=== PATIENT | female | born 1995 | race Two or more races ===

== ENCOUNTER 2023-06-20 09:59 | Emergency (ER) | payer OTHER ==
[~2023-06-20] VITALS: Ht 144.8 cm; Wt 69.9 kg
[2023-06-20] MEDS ORDERED: PRENA1 TRUE CO1 EACH (10:08)
[2023-06-20] MEDS ORDERED: ONDANSETRON HCL 2 MG/ML VIAL IV ONE (10:30)
[2023-06-20] MEDS ORDERED: 0.9 % SODIUM CHLORIDE 1,000 ML IV STA (10:30)
[2023-06-20 11:11] LABS: PH,URINE 6.5 (5.0-8.0); URINE APPEARANCE Cloudy; URINE BILIRRUBIN Negative (NEGATIVE); URINE BLOOD Trace; URINE COLOR Yellow; URINE GLUCOSE Negative (NEGATIVE); URINE LEUKOCYTE Small; URINE NITRATE Negative; URINE PROTEIN Trace (NEGATIVE)
[2023-06-20 11:12] LABS: URINE EPITHELIAL CELLS 176.7 uL (0.0-38.8); URINE RBC 21.8 uL (0.0-20.8); URINE WBC 252.6 uL (0.0-23.2)
[2023-06-20 11:13] LABS: HEMATOCRIT 29.5 % (36.0-45.00); HEMOGLOBIN 9.4 g/dL (12.0-15.00); MEAN CELL VOLUME 61.4 fL (80.00-100.00); MEAN CORPUSCULAR HEMOGLOBIN 19.6 pg (27.00-32.0); MEAN CORPUSCULAR HGB CONC 31.9 g/dl (32.0-36.0); PLATELET COUNT 284 K/uL (150-450)
[2023-06-20 11:29] LABS: URINE BACTERIA > 9821.5 uL (0.0-1933)
[2023-06-20 11:52] LABS: CALCIUM 8.7 mg/dL (8.5-10.1); CREATININE SERUM 0.68 mg/dL (0.55-1.02); GFR 104.59; POTASSIUM 3.67 mEq/L (3.5-5.1)
[2023-06-20] MEDS ORDERED: CEFTRIAXONE SODIUM 1,000 MG VIAL IV STA (12:15)
[2023-06-21] MEDS ORDERED: ONDANSETRON ODT4 MG SL (22:54)
[2023-06-21] MEDS ORDERED: PEPCID AC20 MG PO (22:54)
[2023-06-21] MEDS ORDERED: MACROBID 100 M100 MG PO (22:54)
== END 2023-06-20 12:29 | disposition home or self-care (01) ==
LOC: ER 09:59
PROVIDERS: General Practice
DX: O23.31 Infections of other parts of urinary tract in pregnancy, first trimester (principal); Z3A.16 16 weeks gestation of pregnancy; R11.10 Vomiting, unspecified

== ENCOUNTER 2023-06-21 19:27 | Emergency (ER) | payer OTHER ==
[~2023-06-21] VITALS: Ht 144.8 cm; Wt 68.0 kg
[~2023-06-21 19:27] MED LIST: PRENA1 TRUE CO1 EACH
[2023-06-21] MEDS ORDERED: FAMOTIDINE/PF 20 MG/2 ML VIAL IV ONE (21:15)
[2023-06-21] MEDS ORDERED: CEFTRIAXONE SODIUM 1,000 MG VIAL IV ONE (21:30)
[2023-06-21] MEDS ORDERED: ONDANSETRON HCL 2 MG/ML VIAL IV ONE (21:30)
[2023-06-21] MEDS ORDERED: ACETAMINOPHEN 500 MG GEL..CAP PO ONE (21:30)
[2023-06-21] MEDS ORDERED: 0.9 % SODIUM CHLORIDE 1,000 ML IV SCH (21:45)
[2023-06-21 21:48] LABS: HEMATOCRIT 29.3 % (36.0-45.00); HEMOGLOBIN 9.4 g/dL (12.0-15.00); MEAN CORPUSCULAR HEMOGLOBIN 20.1 pg (27.00-32.0); MEAN CORPUSCULAR HGB CONC 31.9 g/dl (32.0-36.0); PLATELET COUNT 293 K/uL (150-450); RED BLOOD COUNT 4.66 M/uL (4.00-6.00); RED CELL DISTRIBUTION WIDTH 18.9 % (11.5-14.5)
[2023-06-21 21:49] LABS: MEAN CELL VOLUME 62.9 fL (80.00-100.00)
[2023-06-21 22:00] LABS: INR 0.94; PARTIAL THROMBOPLASTIN TIME 27.5 SECONDS (22.0-34.0); PROTHROMBIN TIME 9.9 SECONDS (9.0-11.5)
[2023-06-21 22:32] LABS: CALCIUM 9.2 mg/dL (8.5-10.1); CREATININE SERUM 0.7 mg/dL (0.55-1.02); GFR 101.15; POTASSIUM 3.91 mEq/L (3.5-5.1)
[2023-06-21] MEDS ORDERED: PEPCID AC20 MG PO (22:54)
[2023-06-21] MEDS ORDERED: ONDANSETRON ODT4 MG SL (22:54)
[2023-06-21] MEDS ORDERED: MACROBID 100 M100 MG PO (22:54)
[2023-06-21] MEDS ORDERED: KETOROLAC TROMETHAMINE 30 MG VIAL IM ONE (23:15)
[2023-06-22 00:01] LABS: PH,URINE 6.5 (5.0-8.0); URINE APPEARANCE Clear; URINE BILIRRUBIN Negative (NEGATIVE); URINE BLOOD Negative; URINE COLOR Yellow; URINE GLUCOSE Negative (NEGATIVE); URINE LEUKOCYTE Trace; URINE NITRATE Negative; URINE PROTEIN Negative (NEGATIVE); URINE UROBILINOGEN 0.2 E.U./dl
[2023-06-22 00:02] LABS: URINE BACTERIA 290.9 uL (0.0-1933); URINE EPITHELIAL CELLS 15.5 uL (0.0-38.8); URINE RBC 9.7 uL (0.0-20.8); URINE WBC 20.8 uL (0.0-23.2)
[2023-06-22] MEDS ORDERED: 0.9 % SODIUM CHLORIDE 175 ML IV SCH (10:00)
== END 2023-06-21 23:33 ==
LOC: ER 19:28
PROVIDERS: Nurse Practitioner Family
DX: O23.31 Infections of other parts of urinary tract in pregnancy, first trimester (principal); Z3A.13 13 weeks gestation of pregnancy; R30.0 Dysuria; N39.0 Urinary tract infection, site not specified
CPT/HCPCS: 36415; 76770; 96365; 96366; 96372; 99284; J0696; J1885; J2405; J3490; J7030

== ENCOUNTER 2023-07-06 01:01 | Emergency (ER) | payer OTHER ==
[~2023-07-06] VITALS: Ht 144.8 cm; Wt 68.0 kg
[~2023-07-06 01:01] MED LIST changes: +MACROBID 100 M100 MG PO; +ONDANSETRON ODT4 MG SL; +PEPCID AC20 MG PO
[2023-07-06] MEDS ORDERED: IRON236 MG (01:17)
[2023-07-06] MEDS ORDERED: RINGERS SOLUTION,LACTATED 1,000 ML IV STA (02:11)
[2023-07-06] MEDS ORDERED: HYOSCYAMINE SULFATE 0.125 MG TAB.SUBL SL STA (02:12)
[2023-07-06] MEDS ORDERED: MORPHINE SULFATE 4 MG/ML VIAL IV STA (02:13)
[2023-07-06 02:45] LABS: HEMATOCRIT 29.7 % (36.0-45.00); MEAN CORPUSCULAR HGB CONC 31.5 g/dl (32.0-36.0); PLATELET COUNT 288 K/uL (150-450); RED BLOOD COUNT 4.82 M/uL (4.00-6.00); RED CELL DISTRIBUTION WIDTH 18.7 % (11.5-14.5)
[2023-07-06 02:47] LABS: HEMOGLOBIN 9.4 g/dL (12.0-15.00); MEAN CELL VOLUME 61.6 fL (80.00-100.00); MEAN CORPUSCULAR HEMOGLOBIN 19.5 pg (27.00-32.0)
[2023-07-06 02:52] LABS: CALCIUM 8.6 mg/dL (8.5-10.1); CREATININE SERUM 0.59 mg/dL (0.55-1.02); GFR 123.21; POTASSIUM 3.96 mEq/L (3.5-5.1)
[2023-07-06 04:52] LABS: PH,URINE 6.5 (5.0-8.0); URINE APPEARANCE Clear; URINE BILIRRUBIN Negative (NEGATIVE); URINE BLOOD Trace; URINE COLOR Yellow; URINE GLUCOSE Negative (NEGATIVE); URINE LEUKOCYTE Negative; URINE NITRATE Negative; URINE PROTEIN Negative (NEGATIVE)
[2023-07-06 04:54] LABS: URINE BACTERIA 574.5 uL (0.0-1933); URINE EPITHELIAL CELLS 47.7 uL (0.0-38.8); URINE RBC 4.7 uL (0.0-20.8); URINE WBC 21.9 uL (0.0-23.2)
== END 2023-07-06 05:32 | disposition home or self-care (01) ==
LOC: ER 01:01
DX: O26.892 Other specified pregnancy related conditions, second trimester (principal); N20.1 Calculus of ureter; Z3A.15 15 weeks gestation of pregnancy

== ENCOUNTER 2023-09-14 18:12 | Emergency (ER) | payer OTHER ==
[~2023-09-14] VITALS: Ht 144.8 cm; Wt 77.1 kg
[~2023-09-14 18:12] MED LIST changes: +IRON236 MG; +ONDANSETRON ODT8 MG PO; +TUSSIN100 MG/51 PO; +ZITHROMAX500 MG PO
[2023-09-15] MEDS ORDERED: LACTOBACILLUS ACIDOPHILUS 1 CAP CAP PO STA (00:11)
[2023-09-15] MEDS ORDERED: FAMOTIDINE/PF 20 MG/2 ML VIAL IV PUSH STA (00:11)
[2023-09-15] MEDS ORDERED: PROMETHAZINE HCL 50 MG/ML AMPUL IM STA (00:11)
[2023-09-15] MEDS ORDERED: 0.9 % SODIUM CHLORIDE 1,000 ML IV ONE (00:15)
[2023-09-15] MEDS ORDERED: PROMETHAZINE HCL 50 MG/ML AMPUL IM ONE (00:16)
[2023-09-15] MEDS ORDERED: FAMOTIDINE/PF 20 MG/2 ML VIAL ONE (00:17)
[2023-09-15] MEDS ORDERED: LACTOBACILLUS ACIDOPHILUS 1 CAP CAP PO ONE (00:17)
[2023-09-15 01:10] LABS: HEMATOCRIT 28.9 % (36.0-45.00); MEAN CORPUSCULAR HGB CONC 31.2 g/dl (32.0-36.0); PLATELET COUNT 271 K/uL (150-450); RED BLOOD COUNT 4.67 M/uL (4.00-6.00); RED CELL DISTRIBUTION WIDTH 18.8 % (11.5-14.5)
[2023-09-15 01:11] LABS: MEAN CELL VOLUME 61.9 fL (80.00-100.00); MEAN CORPUSCULAR HEMOGLOBIN 19.2 pg (27.00-32.0)
[2023-09-15 01:33] LABS: PH,URINE 6.5 (5.0-8.0); URINE APPEARANCE Clear; URINE BILIRRUBIN Negative (NEGATIVE); URINE BLOOD Negative; URINE COLOR Yellow; URINE GLUCOSE Negative (NEGATIVE); URINE LEUKOCYTE Moderate; URINE NITRATE Negative; URINE PROTEIN Trace (NEGATIVE)
[2023-09-15 01:34] LABS: URINE BACTERIA 3439.6 uL (0.0-1933); URINE EPITHELIAL CELLS 51.4 uL (0.0-38.8); URINE RBC 15.5 uL (0.0-20.8); URINE WBC 175.4 uL (0.0-23.2)
[2023-09-15 01:50] LABS: CALCIUM 9.2 mg/dL (8.5-10.1); CREATININE SERUM 0.54 mg/dL (0.55-1.02); GFR 136.47; POTASSIUM 4.13 mEq/L (3.5-5.1)
[2023-09-15] MEDS ORDERED: PEPCID40 MG PO (04:02)
[2023-09-15] MEDS ORDERED: INTESTINEX680 M1 PO (04:02)
[2023-09-15] MEDS ORDERED: ONDANSETRON ODT4 MG PO (04:02)
== END 2023-09-15 04:19 ==
LOC: ER 18:13
PROVIDERS: General Practice
DX: O21.8 Other vomiting complicating pregnancy (principal); K52.89 Other specified noninfective gastroenteritis and colitis; Z3A.25 25 weeks gestation of pregnancy; Z20.822 Contact with and (suspected) exposure to COVID-19

== ENCOUNTER → 2023-10-01 14:46 | Outpatient (CLI) | payer OTHER ==
[~2023-10-01 14:46] MED LIST changes: +INTESTINEX680 M1 PO; +ONDANSETRON ODT4 MG PO; +PEPCID40 MG PO
== END | disposition home or self-care (01) ==
LOC: PRENATAL 14:46
PROVIDERS: ATTEND Obstetrics & Gynecology Maternal & Fetal Medicine
DX: O26.849 Uterine size-date discrepancy, unspecified trimester (principal); O99.019 Anemia complicating pregnancy, unspecified trimester; O36.5990 Maternal care for other known or suspected poor fetal growth, unspecified trimester, not applicable or unspecified; Z3A.28 28 weeks gestation of pregnancy

== ENCOUNTER 2023-10-13 06:05 | Inpatient (IN) | payer OTHER ==
[~2023-10-13] VITALS: Ht 121.9 cm; Wt 78.9 kg
[2023-10-13] MEDS ORDERED: ONDANSETRON HCL 4 MG in 0.9 % SODIUM CHLORIDE 50 ML IV STA (06:44)
[2023-10-13] MEDS ORDERED: FAMOTIDINE/PF 20 MG/2 ML VIAL IV PUSH STA (06:45)
[2023-10-13] MEDS ORDERED: SODIUM CHLORIDE 0.45 % 500 ML IV ONE (06:45)
[2023-10-13] MEDS ORDERED: ONDANSETRON HCL 2 MG/ML VIAL ONE (07:11)
[2023-10-13] MEDS ORDERED: CEFTRIAXONE SODIUM 1,000 MG VIAL IV STA (07:54)
[2023-10-13] MEDS ORDERED: CEFTRIAXONE SODIUM 1,000 MG VIAL ONE (07:57)
[2023-10-13 08:03] LABS: URINE APPEARANCE Clear; URINE BILIRRUBIN Negative (NEGATIVE); URINE BLOOD Negative; URINE COLOR Yellow; URINE GLUCOSE Negative (NEGATIVE); URINE LEUKOCYTE Large; URINE NITRATE Negative; URINE PROTEIN Negative (NEGATIVE); URINE UROBILINOGEN 0.2 E.U./dl
[2023-10-13 08:05] LABS: HEMATOCRIT 26.7 % (36.0-45.00); MEAN CORPUSCULAR HGB CONC 31.8 g/dl (32.0-36.0); PLATELET COUNT 175 K/uL (150-450); RED BLOOD COUNT 4.31 M/uL (4.00-6.00); RED CELL DISTRIBUTION WIDTH 18.4 % (11.5-14.5)
[2023-10-13 08:06] LABS: URINE BACTERIA 2476.9 uL (0.0-1933); URINE RBC 2.7 uL (0.0-20.8); URINE WBC 80.5 uL (0.0-23.2)
[2023-10-13 08:25] LABS: HEMOGLOBIN 8.5 g/dL (12.0-15.00); MEAN CELL VOLUME 61.9 fL (80.00-100.00); MEAN CORPUSCULAR HEMOGLOBIN 19.7 pg (27.00-32.0)
[2023-10-13 08:27] LABS: ALBUMIN 2.2 gm/dL (3.4-5.0); BILIRUBIN TOTAL 0.22 mg/dL (0.3-1.2); CALCIUM 8.9 mg/dL (8.5-10.1); CREATININE SERUM 0.63 mg/dL (0.55-1.02); GFR 114.23; GLOBULINA 4.7 G/DL (2.4-3.5); POTASSIUM 3.87 mEq/L (3.5-5.1); TOTAL PROTEIN 6.9 gm/dL (6.4-8.2)
[2023-10-13] MEDS ORDERED: AMPICILLIN SODIUM 2,000 MG VIAL IV STA (09:23)
[2023-10-13] MEDS ORDERED: ACETAMINOPHEN 500 MG GEL..CAP PO PRN (09:30)
[2023-10-13] MEDS ORDERED: RINGERS SOLUTION,LACTATED 100 ML IV SCH (09:30)
[2023-10-13] MEDS ORDERED: KETOROLAC TROMETHAMINE 60 MG VIAL IM STA (09:40)
[2023-10-13] MEDS ORDERED: KETOROLAC TROMETHAMINE 60 MG VIAL IM ONE (10:05)
[2023-10-13] MEDS ORDERED: AMPICILLIN SODIUM 1,000 MG VIAL IV SCH (13:00)
[2023-10-13] MEDS ORDERED: SOD FERRIC GLUC COMPLX/SUCROSE 125 MG in 0.9 % SODIUM CHLORIDE 100 ML IV SCH (16:15)
[2023-10-13] MEDS ORDERED: CEFTRIAXONE SODIUM 1,000 MG in 0.9 % SODIUM CHLORIDE 100 ML IV SCH (21:00)
[2023-10-18] MEDS ORDERED: CEFUROXIME500 MG PO (07:57)
[2023-10-18] MEDS ORDERED: FERROUS SULFAT325 MG PO (07:57)
== END 2023-10-18 10:14 | disposition home or self-care (01) | DRG 833 ==
LOC: ER 06:05 → OB/GYN 10:20
PROVIDERS: General Practice; ADMIT Specialist; ATTEND Specialist
PROC: 4A1HXCZ Monitoring of Products of Conception, Cardiac Rate, External Approach (ICD-10-PCS; principal; 2023-10-13)
PROC: BT43ZZZ Ultrasonography of Bilateral Kidneys (ICD-10-PCS; 2023-10-13)
PROC: BW40ZZZ Ultrasonography of Abdomen (ICD-10-PCS; 2023-10-13)
PROC: BY4FZZZ Ultrasonography of Third Trimester, Single Fetus (ICD-10-PCS; 2023-10-13)
PROC: BU4CZZZ Ultrasonography of Uterus and Ovaries (ICD-10-PCS; 2023-10-13)
DX: O26.893 Other specified pregnancy related conditions, third trimester (principal); N20.0 Calculus of kidney; O99.013 Anemia complicating pregnancy, third trimester; D64.9 Anemia, unspecified; Z3A.29 29 weeks gestation of pregnancy; Z20.822 Contact with and (suspected) exposure to COVID-19; O26.843 Uterine size-date discrepancy, third trimester; O36.8130 Decreased fetal movements, third trimester, not applicable or unspecified; O60.03 Preterm labor without delivery, third trimester

== ENCOUNTER → 2023-11-23 15:09 | Outpatient (CLI) | payer OTHER ==
[~2023-11-23 15:09] MED LIST changes: +CEFUROXIME500 MG PO; +FERROUS SULFAT325 MG PO; +FOLIC ACID20 MG; +IBUPROFEN800 MG PO; +PRENATAL TABLE1 EAC1 PO
== END | disposition home or self-care (01) ==
LOC: PRENATAL 15:09
PROVIDERS: ATTEND Obstetrics & Gynecology Maternal & Fetal Medicine
DX: O26.843 Uterine size-date discrepancy, third trimester (principal); O36.8130 Decreased fetal movements, third trimester, not applicable or unspecified; Z3A.35 35 weeks gestation of pregnancy

== ENCOUNTER 2023-11-30 13:39 | Outpatient (CLI) | payer OTHER ==
[~2023-11-30 13:39] MED LIST changes: -FOLIC ACID20 MG; -IBUPROFEN800 MG PO; -PRENATAL TABLE1 EAC1 PO
== END 2023-11-30 13:40 | disposition home or self-care (01) ==
LOC: PRENATAL 13:39
PROVIDERS: ATTEND Obstetrics & Gynecology Maternal & Fetal Medicine
DX: O36.8199 Decreased fetal movements, unspecified trimester, other fetus (principal); O36.5990 Maternal care for other known or suspected poor fetal growth, unspecified trimester, not applicable or unspecified; Z3A.36 36 weeks gestation of pregnancy

== ENCOUNTER 2023-12-01 12:25 | Inpatient (IN) | payer OTHER ==
[~2023-12-01] VITALS: Ht 144.8 cm; Wt 1.8 kg
[2023-12-01 13:23] LABS: URINE APPEARANCE Cloudy; URINE BILIRRUBIN Negative (NEGATIVE); URINE BLOOD Negative; URINE COLOR Yellow; URINE GLUCOSE Negative (NEGATIVE); URINE KETONE Trace (NEGATIVE); URINE LEUKOCYTE Moderate; URINE NITRATE Negative; URINE PROTEIN >=1000 (NEGATIVE)
[2023-12-01 13:24] LABS: HEMATOCRIT 34.4 % (36.0-45.00); HEMOGLOBIN 11.2 g/dL (12.0-15.00); MEAN CELL VOLUME 70.3 fL (80.00-100.00); MEAN CORPUSCULAR HEMOGLOBIN 22.8 pg (27.00-32.0); MEAN CORPUSCULAR HGB CONC 32.5 g/dl (32.0-36.0); PLATELET COUNT 175 K/uL (150-450)
[2023-12-01 13:27] LABS: URINE CAST 1.52 uL (0.0-1.40); URINE EPITHELIAL CELLS 81.1 uL (0.0-38.8); URINE RBC 22.7 uL (0.0-20.8); URINE WBC 448.5 uL (0.0-23.2)
[2023-12-01 13:28] LABS: RED CELL DISTRIBUTION WIDTH 28.3 % (11.5-14.5)
[2023-12-01 13:46] LABS: INR < 0.93
[2023-12-01 13:48] LABS: PROTHROMBIN TIME 9.6 SECONDS (9.0-11.5)
[2023-12-01 14:04] LABS: URINE BACTERIA > 9821.5 uL (0.0-1933)
[2023-12-01 14:05] LABS: URINE YEAST MODERATE /hpf
[2023-12-01 14:13] LABS: ALBUMIN 2.3 gm/dL (3.4-5.0); BILIRUBIN TOTAL 0.16 mg/dL (0.3-1.2); CALCIUM 8.6 mg/dL (8.5-10.1); CREATININE SERUM 0.84 mg/dL (0.55-1.02); GFR 81.96; GLOBULINA 4.7 G/DL (2.4-3.5); POTASSIUM 4.66 mEq/L (3.5-5.1)
[2023-12-03 05:40] VITALS: BP 134/84
[2023-12-03] MEDS ORDERED: PRENATAL TABLE1 EAC1 PO (05:54)
[2023-12-03] MEDS ORDERED: FOLIC ACID20 MG (05:54)
[2023-12-03] MEDS ORDERED: MAGNESIUM SULFATE IN WATER 4GM/50ML PIGGYBAG IV ONE (08:45)
[2023-12-03] MEDS ORDERED: ERYTHROMYCIN BASE OPHT 1GM EACH TUBE OP ONE (08:45)
[2023-12-03] MEDS ORDERED: OXYTOCIN 10 UNITS/ML VIAL IV ONE (08:45)
[2023-12-03] MEDS ORDERED: CEFAZOLIN SODIUM 1,000 MG VIAL IV ONE (08:45)
[2023-12-03] MEDS ORDERED: MORPHINE SULFATE 4 MG/ML VIAL IV ONE (09:05)
[2023-12-03] MEDS ORDERED: hydrALAZINE HCL 20 MG VIAL ONE (09:19)
[2023-12-03] MEDS ORDERED: MAGNESIUM SULFATE IN WATER 0.04 GM/ML IV.SOLN IV ONE (09:20)
[2023-12-03] MEDS ORDERED: hydrALAZINE HCL 20 MG VIAL IV ONE (09:45)
[2023-12-03] MEDS ORDERED: PROMETHAZINE HCL 50 MG/ML AMPUL IM PRN (09:45)
[2023-12-03] MEDS ORDERED: RINGERS SOLUTION,LACTATED 100 ML IV SCH (09:45)
[2023-12-03] MEDS ORDERED: MAGNESIUM SULFATE IN WATER 500 ML IV SCH (09:45)
[2023-12-03] MEDS ORDERED: MEPERIDINE HCL/PF 50 MG/ML VIAL IM PRN (09:45)
[2023-12-03] MEDS ORDERED: PROMETHAZINE HCL 50 MG/ML AMPUL IM ONE (11:44)
[2023-12-03 12:03] LABS: ALBUMIN 1.9 gm/dL (3.4-5.0); BILIRUBIN TOTAL 0.16 mg/dL (0.3-1.2); CALCIUM 8.3 mg/dL (8.5-10.1); CREATININE SERUM 0.52 mg/dL (0.55-1.02); GFR 142.54; GLOBULINA 3.9 G/DL (2.4-3.5); POTASSIUM 4.2 mEq/L (3.5-5.1); TOTAL PROTEIN 5.8 gm/dL (6.4-8.2)
[2023-12-03 12:56] VITALS: BP 156/88
[2023-12-03 15:33] VITALS: BP 157/84
[2023-12-03 20:07] VITALS: BP 155/81
[2023-12-03 22:05] VITALS: BP 148/87
[2023-12-03 23:15] VITALS: BP 121/69
[2023-12-04 02:42] LABS: HEMATOCRIT 28.6 % (36.0-45.00); HEMOGLOBIN 9.3 g/dL (12.0-15.00); MEAN CORPUSCULAR HEMOGLOBIN 22.6 pg (27.00-32.0); MEAN CORPUSCULAR HGB CONC 32.4 g/dl (32.0-36.0); PLATELET COUNT 170 K/uL (150-450)
[2023-12-04 02:44] LABS: MEAN CELL VOLUME 69.8 fL (80.00-100.00); RED CELL DISTRIBUTION WIDTH 27.9 % (11.5-14.5)
[2023-12-04 03:16] VITALS: BP 132/81
[2023-12-04 07:28] VITALS: BP 126/81
[2023-12-04] MEDS ORDERED: ACETAMINOPHEN 500 MG GEL..CAP PO PRN (08:15)
[2023-12-04] MEDS ORDERED: OxyCODONE HCL/APAP UD (PERCOCET) PO PRN (08:15)
[2023-12-04 11:47] VITALS: BP 133/88
[2023-12-04 14:34] VITALS: BP 143/94
[2023-12-05 01:00] VITALS: BP 121/69
[2023-12-05 11:35] VITALS: BP 112/73
[2023-12-05 15:25] VITALS: BP 150/80
[2023-12-06 01:00] VITALS: BP 128/84
[2023-12-06] MEDS ORDERED: IBUPROFEN800 MG PO (07:53)
[2023-12-06 08:56] VITALS: BP 155/90
== END 2023-12-06 14:13 | disposition home or self-care (01) | DRG 788 ==
LOC: O/R 12-03 05:30 → LDR 12-03 05:30 → OB/GYN 12-03 07:00 → LDR 12-03 13:23 → OB/GYN 12-04 08:21
PROVIDERS: ADMIT Specialist; ATTEND Specialist
PROC: 4A1HXCZ Monitoring of Products of Conception, Cardiac Rate, External Approach (ICD-10-PCS; 2023-12-03)
PROC: 10D00Z1 Extraction of Products of Conception, Low, Open Approach (ICD-10-PCS; principal; 2023-12-03 07:00)
DX: O36.5930 Maternal care for other known or suspected poor fetal growth, third trimester, not applicable or unspecified (principal); O34.211 Maternal care for low transverse scar from previous cesarean delivery; Z3A.37 37 weeks gestation of pregnancy; Z37.0 Single live birth; Z20.822 Contact with and (suspected) exposure to COVID-19